=== PATIENT | male | born 1935 | race Caucasian/White ===

== ENCOUNTER 2017-07-24 07:58 | Day surgery (SDC) | payer MEDICARE, OTHER ==
[~2017-07-24] VITALS: Ht 170.2 cm; Wt 87.2 kg
[~2017-07-24 07:58] MED LIST: ASPI81CH; Hair, Skin & N1 EACH; Prinivil10 MG; Simvastatin20 MG
== END 2017-07-24 09:00 | disposition home or self-care (01) ==
LOC: ORSCSDS 07:58
DX: Z12.11 Encounter for screening for malignant neoplasm of colon (principal); Z86.010 Personal history of colon polyps; Z53.9 Procedure and treatment not carried out, unspecified reason
CPT/HCPCS: 93005; 93010; J7120